=== PATIENT | female | born 1975 | race Caucasian/White ===

== ENCOUNTER 2017-04-14 17:19 | Emergency (ER) | payer MEDICARE ==
[~2017-04-14] VITALS: Ht 162.6 cm; Wt 96.0 kg
[~2017-04-14 17:19] MED LIST: BACTRIM DS1 TAB PO; NAPROSYN500 MG PO; NOVOLOG FLEXPEN SC; ZOFRAN4 MG/TAB PO
[2017-04-14] MEDS ORDERED: PERCOCET 5/325M1 TAB PO (18:27)
[2017-04-14 18:35] VITALS: BP 133/74
[2017-04-14] MEDS ORDERED: ULTRAM50 M1 PO (18:48)
== END 2017-04-14 18:58 | disposition home or self-care (01) ==
LOC: ED 17:19
DX: S80.01XA Contusion of right knee, initial encounter (principal); E11.9 Type 2 diabetes mellitus without complications; F43.10 Post-traumatic stress disorder, unspecified; W55.12XA Struck by horse, initial encounter; Y92.008 Other place in unspecified non-institutional (private) residence as the place of occurrence of the external cause; Z96.652 Presence of left artificial knee joint; Z98.84 Bariatric surgery status; Z79.4 Long term (current) use of insulin

== ENCOUNTER 2017-12-22 13:56 | Emergency (ER) | payer MEDICARE, MEDICAID ==
[~2017-12-22] VITALS: Ht 162.6 cm; Wt 110.0 kg
[~2017-12-22 13:56] MED LIST changes: +PERCOCET 5/325M1 TAB PO; +ULTRAM50 M1 PO
[2017-12-22] MEDS ORDERED: BACTRIM DS1 TAB PO (14:24)
[2017-12-22] MEDS ORDERED: CLEOCIN300 MG PO (14:24)
[2017-12-22] MEDS ORDERED: ULTRAM50 M1 PO (14:30)
[2017-12-22] MEDS ORDERED: DOXYCYC MONO100 M1 PO (15:09)
[2017-12-22 15:55] VITALS: BP 110/72
== END 2017-12-22 15:55 | disposition home or self-care (01) ==
LOC: ED 13:56
DX: S51.851A Open bite of right forearm, initial encounter (principal); S50.811A Abrasion of right forearm, initial encounter; W55.01XA Bitten by cat, initial encounter; W55.03XA Scratched by cat, initial encounter; Y92.009 Unspecified place in unspecified non-institutional (private) residence as the place of occurrence of the external cause

== ENCOUNTER 2018-03-14 03:09 | Emergency (ER) | payer MEDICARE ==
[~2018-03-14] VITALS: Ht 162.6 cm; Wt 97.2 kg
[~2018-03-14 03:09] MED LIST changes: +CLEOCIN300 MG PO; +DOXYCYC MONO100 M1 PO
[2018-03-14 04:17] LABS: INFLUENZA A NONE DETECTED (NONE DETECT); INFLUENZA B NONE DETECTED (NONE DETECT)
[2018-03-14] MEDS ORDERED: CODEINE/GUAIFEN1 SOL PO (05:51)
[2018-03-14] MEDS ORDERED: CIPROFLOXACN500 MG PO (05:51)
[2018-03-14 06:25] VITALS: BP 133/88
== END 2018-03-14 06:25 | disposition home or self-care (01) ==
LOC: ED 03:09
PROVIDERS: Emergency Medicine
DX: J40 Bronchitis, not specified as acute or chronic (principal); J02.9 Acute pharyngitis, unspecified; E11.9 Type 2 diabetes mellitus without complications; G40.909 Epilepsy, unspecified, not intractable, without status epilepticus

== ENCOUNTER 2018-05-06 15:14 | Inpatient (IN) | payer MEDICARE ==
[~2018-05-06] VITALS: Ht 162.6 cm; Wt 96.2 kg
[~2018-05-06 15:14] MED LIST changes: +AMITRIPTYLIN25 MG PO; +BIOTIN5000 MCG PO; +CIPROFLOXACN500 MG PO; +CODEINE/GUAIFEN1 SOL PO; +LEVEMIR100 UNIT/M SC; +LISINOPRIL10 MG PO; +MONTELUKAST SOD10 MG PO; +RANITIDINE 150150 MG; +VALACYCLOVIR H500 MG PO
[2018-05-10] VITALS (8 sets, daily range): BP systolic 104–140; BP diastolic 58–77
[2018-05-11 05:04] LABS: HEMATOCRIT 38.4 % (37.0-47.0); HEMOGLOBIN 12.8 g/dl (12.0-16.0)
[2018-05-11 05:27] VITALS: BP 113/76
[2018-05-11 08:00] VITALS: BP 140/78
[2018-05-11 11:25] VITALS: BP 110/67
[2018-05-11 16:05] VITALS: BP 123/75
[2018-05-11 19:29] VITALS: BP 145/85
[2018-05-12 00:02] VITALS: BP 147/86
[2018-05-12 03:54] VITALS: BP 154/89
[2018-05-12 05:20] LABS: HEMATOCRIT 37.1 % (37.0-47.0); HEMOGLOBIN 12.2 g/dl (12.0-16.0); IMMATURE GRANULOCYTES 0.6 % (0.0-5.0); MEAN CELL VOLUME 96.6 fL CALC (80.0-100.0); MEAN CORPUSCULAR HGB 31.8 pG CALC (26.0-32.0); MEAN CORPUSCULAR HGB CONC 32.9 g/L CALC (32.0-36.0); NEUT# 4.45 thou/uL (2.00-7.15); RED BLOOD COUNT 3.84 mill/uL (4.20-5.60); RED CELL DISTRI WIDTH 12.7 % (11.5-15.5)
[2018-05-12 05:39] LABS: ALKALINE PHOSPHATASE 62 u/l (38-126); ANION GAP 10 (6-22 (CALC)); BILIRUBIN, TOTAL 0.5 mg/dL (0.0-1.4); BUN 12 mg/dL (7-17); BUN/CREATININE RATIO 22 (12-20 (CALC)); CARBON DIOXIDE 30 mmol/l (22-30); CHLORIDE 105 mmol/l (95-108); CREATININE 0.6 mg/dL (0.5-1.0); GFR > 60 ML/MIN (>=60 (CALC)); GFR FOR AFR.AMER. > 60 ML/MIN (>=60 (CALC)); MAGNESIUM 1.7 mg/dL (1.6-2.3); POTASSIUM 3.9 mmol/l (3.5-5.1); SGOT/AST 35 u/l (14-36); SGPT/ALT 72 u/l (9-52); SODIUM 141 mmol/l (137-146); TOTAL PROTEIN 6.5 g/dL (6.3-8.2)
[2018-05-12 05:46] LABS: ALBUMIN 3.3 g/dL (3.2-5.0)
[2018-05-12 07:40] VITALS: BP 148/94
[2018-05-12 12:00] VITALS: BP 130/81
[2018-05-12] MEDS ORDERED: LORTAB 5/3255 MG PO (12:23)
== END 2018-05-12 14:27 | disposition home health service (06) | DRG 470 ==
LOC: MS2 05-10 06:48
PROVIDERS: Internal Medicine Nephrology; ADMIT Orthopaedic Surgery; ATTEND Orthopaedic Surgery
PROC: 0SRC0J9 Replacement of Right Knee Joint with Synthetic Substitute, Cemented, Open Approach (ICD-10-PCS; principal; 2018-05-10)
DX: M17.11 Unilateral primary osteoarthritis, right knee (principal); E11.9 Type 2 diabetes mellitus without complications; I10 Essential (primary) hypertension; E78.5 Hyperlipidemia, unspecified; K21.9 Gastro-esophageal reflux disease without esophagitis; E66.01 Morbid (severe) obesity due to excess calories; Z68.36 Body mass index [BMI] 36.0-36.9, adult; Z79.4 Long term (current) use of insulin; Z96.652 Presence of left artificial knee joint
CPT/HCPCS: J1650

== ENCOUNTER 2018-05-29 21:00 | Emergency (ER) | payer MEDICARE ==
[~2018-05-29] VITALS: Ht 162.6 cm; Wt 97.0 kg
[~2018-05-29 21:00] MED LIST changes: +LORTAB 5/3255 MG PO
[2018-05-29] MEDS ORDERED: PREDNISONE10 MG PO (22:06)
[2018-05-29 22:30] VITALS: BP 120/64
== END 2018-05-29 22:33 | disposition home or self-care (01) ==
LOC: ED 21:00
DX: L50.9 Urticaria, unspecified (principal); E11.9 Type 2 diabetes mellitus without complications; G40.909 Epilepsy, unspecified, not intractable, without status epilepticus; J98.4 Other disorders of lung